=== PATIENT | female | born 1965 | race African-American/Black ===

== ENCOUNTER → 2016-05-10 | Outpatient (CLI) | payer OTHER ==
--- NOTE | 2016-05-12 08:58 | KCIC ---
PROCEDURE Bilateral digital screening mammogram. HISTORY 50-year-old female presents for screening mammography. TECHNIQUE Full field digital craniocaudal and medial lateral oblique views of both breasts are obtained. Computer-aided detection is applied. COMPARISON 03/22/2013 FINDINGS Breast parenchymal composition: Level C - Heterogeneously dense. There are new benign coarse calcifications within the 6 o'clock position of the right breast. There are additional benign calcifications within the subareolar aspect of both breasts. No suspicious calcification morphology is seen. There is no suspicious mass or architectural distortion within either breast. IMPRESSION BI-RADS Category 2: Benign findings. Annual mammography is recommended. Mammography is not 100% sensitive in detecting breast cancer. Therefore, a self breast exam and a clinical breast exam are very important. A negative mammogram does not negate a clinically suspicious finding and should not result in a delay in biopsying a clinically suspicious abnormality. This patient's information has been entered into a reminder system for the patient to be notified with the results of this examination and a target date for her next mammograms. Electronically signed by: Pavithra Jim (May 12, 2016 08:56:44)
== END | disposition home or self-care (01) ==
LOC: KCIC MAMMO 08:03
PROVIDERS: ATTEND Family Medicine
DX: Z12.31 Encounter for screening mammogram for malignant neoplasm of breast (principal)
CPT/HCPCS: G0202; 77067